=== PATIENT | male | born 1970 | race African-American/Black ===

== ENCOUNTER 2017-05-29 10:29 | Emergency (ER) | payer OTHER ==
[~2017-05-29] VITALS: Ht 188 cm; Wt 92.1 kg
[2017-05-29 10:41] VITALS: TEMP 36.9; Ht 188 cm; Wt 92.1 kg
[2017-05-29] MEDS ORDERED: HYDR25TA4 PO (10:41)
[2017-05-29] MEDS ORDERED: VNTHFA/IN INH (10:41)
[2017-05-29] MEDS ORDERED: AMLO-114 PO (10:41)
[2017-05-29] MEDS ORDERED: CICL160A INH (10:41)
[2017-05-29 11:21] LABS: BASO % 0.2 %; BASO ABS # 0.01 K/uL (0-0.2); COMPLETE YES; EOS % 1.5 %; HEMATOCRIT 43.3 % (42-52); IG% 0.2 %; LYMPH % 27.9 %; LYMPH ABS # 1.34 K/uL (1.2-3.4); MEAN CELL VOLUME 83.4 fL (80-100); MEAN CORPUSCULAR HEMOGLOBIN 27.6 pg (25-34); MEAN PLATELET VOLUME 9.6 fL (7.4-10.4); MONO % 8.9 %; NEUT % 61.3 %; PLATELET COUNT 224 K/uL (130-400); RED BLOOD COUNT 5.19 M/uL (4.7-6.1); WHITE BLOOD COUNT 4.81 K/uL (4.8-10.8)
[2017-05-29 11:38] LABS: BUN/CREATININE RATIO 10.6 (10-20); CREATININE 1.2 mg/dl (0.60-1.40); POTASSIUM 3.4 mmol/L (3.5-5.1)
[2017-05-29 11:39] LABS: CALCIUM 9.3 mg/dl (8.5-10.1)
--- NOTE | 2017-05-29 11:49 | DIAGNOSTIC IMAGING REPORT ---
R HAND MIN 3 VIEWS ROUTINE, L HAND MIN 3 VIEWS ROUTINE CLINICAL HISTORY: Bilateral hand pain. Fall. COMPARISON STUDY: None. FINDINGS: Osteoarthritis of the bilateral DIP joints most mass within the right fifth DIP joint. No acute fracture or dislocation. Cluster of punctate radiopaque foreign bodies at the distal right thumb and distal right middle finger. IMPRESSION: 1. No acute fracture or dislocation within the bilateral hands. 2. Cluster of punctate radiopaque foreign bodies at the distal right thumb and distal right middle finger. This could be on the skin surface. Electronically signed by: Jose Alfredo Artis M.D. 05/29/2017 11:48 AM Dictated Date/Time: 05/29/2017 11:44 AM
--- NOTE | 2017-05-29 11:52 | DIAGNOSTIC IMAGING REPORT ---
HEAD CT NONCONTRAST CT DOSE: HISTORY: trauma TECHNIQUE: Multiaxial CT images of the head were performed without the use of intravenous contrast. Automated exposure control was utilized for this study. A dose lowering technique was utilized adhering to the principles of ALARA. Comparison: None. Findings: The paranasal sinuses and mastoid air cells are clear. The calvarium and skull base are intact. The ventricles and sulci are within normal limits. There is no mass, hematoma, midline shift, or acute infarct. Impression: No acute intracranial abnormality. Electronically signed by: Jose Alfredo Artis M.D. 05/29/2017 11:51 AM Dictated Date/Time: 05/29/2017 11:48 AM
--- NOTE | 2017-05-29 12:04 | DIAGNOSTIC IMAGING REPORT ---
CERVICAL, THORACIC, AND LUMBAR SPINE CT CT DOSE: 2699.78 mGy.cm HISTORY: fall hit head TECHNIQUE: Multiaxial CT images of the cervical spine, thoracic, lumbar were performed and reformatted in the sagittal and coronal plane without the use of contrast. A dose lowering technique was utilized adhering to the principles of ALARA. COMPARISON: None. FINDINGS: No fractures. No subluxation. Prevertebral soft tissues and the C1-C2 interval are intact. No pneumothorax. Mild degenerative disc disease at C4-C5 and C5-C6 with small endplate osteophytes. A 3 mm nodule within the right upper lobe on image 146 of 536 of the thoracic spine series. IMPRESSION: No fractures within the cervical , thoracic, or lumbar spine. A 3 mm right upper lobe pulmonary nodule.. Electronically signed by: Jose Alfredo Artis M.D. 05/29/2017 12:02 PM Dictated Date/Time: 05/29/2017 11:51 AM
[2017-05-29] MEDS ORDERED: XYLOCAINE 1%/SOD BICARB 20 ML VIAL INFIL ONE (12:09)
[2017-05-29] MEDS ORDERED: DIPHTHERIA/TETANUS/PERTUSSIS 0.5 ML SYR/VIAL IM. ONE (12:45)
[2017-05-29] MEDS ORDERED: LIDOCAINE/EPINEPHRINE 1% 20 ML VIAL INFIL ONE (12:45)
[2017-05-29 13:09] LABS: URINE APPEARANCE CLEAR (CLEAR); URINE BILIRUBIN NEG (NEG); URINE COLOR YELLOW; URINE NITRITE NEG (NEG); URINE PH 8.5 (4.5-7.5); UROBILINOGEN NEG (NEG); ZZUR CULT IF INDIC CLEAN CATCH NO
--- NOTE | 2017-05-29 13:16 | EMERGENCY ROOM VISIT NOTE ---
ED Visit Note 46-year-old male inmate who I was asked by Dr. Chavez, ED attending physician, to perform a laceration repair. Please see his dictation for further treatment and final disposition. PROCEDURE NOTE: Examination shows a 4.5 cm transverse laceration under the chin. No active bleeding noted. Patient provided verbal consent for laceration repair under local anesthesia. Using buffered 1% lidocaine without epinephrine, good local anesthesia was administered. The peripheral tissue was cleansed with iodine, then the wound was irrigated with approximately 100 mL of normal saline. Exploration of the wound does not show any additional foreign debris. The wound was then approximated using 5-0 nylon simple interrupted sutures 7. Bacitracin was applied. The patient tolerated the procedure well. ASSESSMENT: Chin laceration
[2017-05-29 13:19] LABS: MANUAL MICROSCOPIC REQUIRED? NO; REVIEW REQ? YES
--- NOTE | 2017-05-29 14:48 | DIAGNOSTIC IMAGING REPORT ---
CERVICAL SPINE MRI HISTORY: trauma w/ tingling of fingers b/l TECHNIQUE: Multiplanar multisequence MRI of the cervical spine was performed without the use of contrast. COMPARISON STUDY: Cervical spine CT 05/29/2017. FINDINGS: Alignment and curvature are intact. No fractures within the cervical spine. Mild disc space narrowing at C4-C5, C5-C6, and C6-C7. The visualized posterior fossa is unremarkable. Prevertebral soft tissues and the C1-C2 interval are intact. The cervical spinal cord demonstrates a normal signal intensity. The visualized posterior fossa is unremarkable. C2-C3: No significant central canal or neural foraminal narrowing. C3-C4: No significant central canal or neural foraminal narrowing. C4-C5: Small broad-based posterior disc bulge with a focal central disc protrusion which measures 4 mm. This results in mild anterior cord deformity most pronounced on the right. There is mild bilateral neural foraminal narrowing. C5-C6: Broad-based posterior disc bulge resulting in mild anterior cord deformity and moderate bilateral neural foraminal narrowing. C6-C7: Focal central/right paracentral disc protrusion which measures 4 mm. This results in moderate right-sided cord deformity. Moderate bilateral neural foraminal narrowing. C7-T1: No significant central canal or neural foraminal narrowing. IMPRESSION: 1. No fractures within the cervical spine. 2. Focal central disc protrusions at C4-C5 and C6-C7 resulting and associated cord deformity as described above. 3. Broad-based posterior disc bulge at C5-C6 resulting in mild anterior cord deformity. 4. Bilateral neural foraminal narrowing from C4 through C7 as described above. Electronically signed by: Jose Alfredo Artis M.D. 05/29/2017 2:47 PM Dictated Date/Time: 05/29/2017 2:43 PM
--- NOTE | 2017-05-29 15:06 | EMERGENCY ROOM VISIT NOTE ---
History Report prepared by Jessy: Jami Lan Under the Supervision of: Dr. Tyree Chavez D.O. First contact with patient: 10:40 Chief Complaint: FALL Stated Complaint: NECK/BACK PAIN History of Present Illness The patient is a 46 year old male who presents to the Emergency Room with complaints of a sudden fall that occurred prior to arrival. The patient reports that he was exercising on a hyperextension machine when the machine malfunctioned, causing him to fall backwards, injuring his face, neck and back. The patient states that the machine flipped over. He is unsure of his tetanus status. The patient report tingling in his bilateral hands. He states that he lost consciousness after the event. The patient reports neck pain, back pain, and right finger pain. He declines any pain medication at this time. Source of History: patient Onset: prior to arrival Position: other (global) Quality: other (fall) Timing: other (sudden) Associated Symptoms: + LOC, + neck pain, + back pain Review of Systems See HPI for pertinent positives & negatives. A total of 10 systems reviewed and were otherwise negative. Past Medical & Surgical No pertinent history stated. Family History No pertinent family history stated. Social History Marital Status: single Occupation Status: other (senior living) Current/Historical Medications Scheduled Amlodipine (Norvasc), 10 MG PO DAILY Ciclesonide (Alvesco), 1 PUFF INH BID Hydrochlorothiazide (Hctz), 1 TAB PO DAILY Scheduled PRN Albuterol Hfa (Ventolin Hfa), 2-4 PUFFS INH Q6H PRN for SOB/Wheezing Physical Exam Vital Signs Date Time Temp Pulse Resp B/P (MAP) Pulse Ox O2 Delivery O2 Flow Rate FiO2 05/29/17 12:52 62 18 139/87 100 Room Air 05/29/17 10:41 36.9 77 18 150/83 99 Room Air 05/29/17 10:36 80 Physical Exam GENERAL: alert, well appearing, well nourished, no distress, non-toxic, laying on long board with c-collar in place. HEAD: 4.5 cm linear laceration over chin, mild venous oozing EYE EXAM: normal conjunctiva, PERRL and EOM's grossly intact OROPHARYNX: no exudate, no erythema, lips, buccal mucosa, and tongue normal and mucous membranes are moist EARS: TMs clear b/l NECK: Mild midline, reproducible tenderness, tracking into upper thoracic spine , supple, no nuchal rigidity, no adenopathy. CHEST: stable to compression anteriorly and posteriorly LUNGS: clear to auscultation. Normal chest wall mechanics HEART: no murmurs, S1 normal and S2 normal ABDOMEN: abdomen soft, non-tender, normo-active bowel sounds, no masses, no rebound or guarding. PELVIS: stable to compression anteriorly and posteriorly BACK: Back is symmetrical on inspection and there is no deformity, minimal tenderness in the lower lumbar spine, no CVA tenderness. UPPER EXTREMITIES: Acute reproducible tenderness over digits 2-5 bilaterally, no obvious deformity, left hand with pain tracking into the 5th metacarpal and medial wrist. flexion and extension at shoulder, elbow wrist, and grasp and abduction in all digits. 5/5 strength in extremities. LOWER EXTREMITIES: full active and passive range of motion of all joints without tenderness to palpation NEURO EXAM: Normal sensorium, cranial nerves II-XII grossly intact, normal speech, no weakness of arms, no weakness of legs. GCS: 15. Medical Decision & Procedures ER Provider Diagnostic Interpretation: Radiology results as stated below per my review and the radiologist's interpretation: R HAND MIN 3 VIEWS ROUTINE, L HAND MIN 3 VIEWS ROUTINE CLINICAL HISTORY: Bilateral hand pain. Fall. COMPARISON STUDY: None. FINDINGS: Osteoarthritis of the bilateral DIP joints most mass within the right fifth DIP joint. No acute fracture or dislocation. Cluster of punctate radiopaque foreign bodies at the distal right thumb and distal right middle finger. IMPRESSION: 1. No acute fracture or dislocation within the bilateral hands. 2. Cluster of punctate radiopaque foreign bodies at the distal right thumb and distal right middle finger. This could be on the skin surface. Electronically signed by: oJse Alfredo Artis M.D. 05/29/2017 11:48 AM Dictated Date/Time: 05/29/2017 11:44 AM R HAND MIN 3 VIEWS ROUTINE, L HAND MIN 3 VIEWS ROUTINE CLINICAL HISTORY: Bilateral hand pain. Fall. COMPARISON STUDY: None. FINDINGS: Osteoarthritis of the bilateral DIP joints most mass within the right fifth DIP joint. No acute fracture or dislocation. Cluster of punctate radiopaque foreign bodies at the distal right thumb and distal right middle finger. IMPRESSION: 1. No acute fracture or dislocation within the bilateral hands. 2. Cluster of punctate radiopaque foreign bodies at the distal right thumb and distal right middle finger. This could be on the skin surface. Electronically signed by: Jose Alfredo Artis M.D. 05/29/2017 11:48 AM Dictated Date/Time: 05/29/2017 11:44 AM CERVICAL, THORACIC, AND LUMBAR SPINE CT CT DOSE: 2699.78 mGy.cm HISTORY: fall hit head TECHNIQUE: Multiaxial CT images of the cervical spine, thoracic, lumbar were performed and reformatted in the sagittal and coronal plane without the use of contrast. A dose lowering technique was utilized adhering to the principles of ALARA. COMPARISON: None. FINDINGS: No fractures. No subluxation. Prevertebral soft tissues and the C1-C2 interval are intact. No pneumothorax. Mild degenerative disc disease at C4-C5 and C5-C6 with small endplate osteophytes. A 3 mm nodule within the right upper lobe on image 146 of 536 of the thoracic spine series. IMPRESSION: No fractures within the cervical , thoracic, or lumbar spine. A 3 mm right upper lobe pulmonary nodule.. Electronically signed by: Jose Alfredo Artis M.D. 05/29/2017 12:02 PM Dictated Date/Time: 05/29/2017 11:[address] CT DOSE: HISTORY: trauma TECHNIQUE: Multiaxial CT images of the head were performed without the use of intravenous contrast. Automated exposure control was utilized for this study. A dose lowering technique was utilized adhering to the principles of ALARA. Comparison: None. Findings: The paranasal sinuses and mastoid air cells are clear. The calvarium and skull base are intact. The ventricles and sulci are within normal limits. There is no mass, hematoma, midline shift, or acute infarct. Impression: No acute intracranial abnormality. Electronically signed by: Jose Alfredo Artis M.D. 05/29/2017 11:51 AM Dictated Date/Time: 05/29/2017 11:48 AM CERVICAL, THORACIC, AND LUMBAR SPINE CT CT DOSE: 2699.78 mGy.cm HISTORY: fall hit head TECHNIQUE: Multiaxial CT images of the cervical spine, thoracic, lumbar were performed and reformatted in the sagittal and coronal plane without the use of contrast. A dose lowering technique was utilized adhering to the principles of ALARA. COMPARISON: None. FINDINGS: No fractures. No subluxation. Prevertebral soft tissues and the C1-C2 interval are intact. No pneumothorax. Mild degenerative disc disease at C4-C5 and C5-C6 with small endplate osteophytes. A 3 mm nodule within the right upper lobe on image 146 of 536 of the thoracic spine series. IMPRESSION: No fractures within the cervical , thoracic, or lumbar spine. A 3 mm right upper lobe pulmonary nodule.. Electronically signed by: Jose Alfredo Artis M.D. 05/29/2017 12:02 PM Dictated Date/Time: 05/29/2017 11:51 AM CERVICAL, THORACIC, AND LUMBAR SPINE CT CT DOSE: 2699.78 mGy.cm HISTORY: fall hit head TECHNIQUE: Multiaxial CT images of the cervical spine, thoracic, lumbar were performed and reformatted in the sagittal and coronal plane without the use of contrast. A dose lowering technique was utilized adhering to the principles of ALARA. COMPARISON: None. FINDINGS: No fractures. No subluxation. Prevertebral soft tissues and the C1-C2 interval are intact. No pneumothorax. Mild degenerative disc disease at C4-C5 and C5-C6 with small endplate osteophytes. A 3 mm nodule within the right upper lobe on image 146 of 536 of the thoracic spine series. IMPRESSION: No fractures within the cervical , thoracic, or lumbar spine. A 3 mm right upper lobe pulmonary nodule.. Electronically signed by: Jose Alfredo Artis M.D. 05/29/2017 12:02 PM Dictated Date/Time: 05/29/2017 11:51 AM Laboratory Results 05/29/17 11:10 Red Blood Count 5.19, Mean Corpuscular Volume 83.4, Mean Corpuscular Hemoglobin 27.6, Mean Corpuscular Hemoglobin Concent 33.0, Mean Platelet Volume 9.6, Neutrophils (%) (Auto) 61.3, Lymphocytes (%) (Auto) 27.9, Monocytes (%) (Auto) 8.9, Eosinophils (%) (Auto) 1.5, Basophils (%) (Auto) 0.2, Neutrophils # (Auto) 2.95, Lymphocytes # (Auto) 1.34, Monocytes # (Auto) 0.43, Eosinophils # (Auto) 0.07, Basophils # (Auto) 0.01 05/29/17 11:10 Test 05/29/17 11:10 05/29/17 12:50 White Blood Count 4.81 K/uL (4.8-10.8) Red Blood Count 5.19 M/uL (4.7-6.1) Hemoglobin 14.3 g/dL (14.0-18.0) Hematocrit 43.3 % (42-52) Mean Corpuscular Volume 83.4 fL (80-100) Mean Corpuscular Hemoglobin 27.6 pg (25-34) Mean Corpuscular Hemoglobin Concent 33.0 g/dl (32-36) Platelet Count 224 K/uL (130-400) Mean Platelet Volume 9.6 fL (7.4-10.4) Neutrophils (%) (Auto) 61.3 % Lymphocytes (%) (Auto) 27.9 % Monocytes (%) (Auto) 8.9 % Eosinophils (%) (Auto) 1.5 % Basophils (%) (Auto) 0.2 % Neutrophils # (Auto) 2.95 K/uL (1.4-6.5) Lymphocytes # (Auto) 1.34 K/uL (1.2-3.4) Monocytes # (Auto) 0.43 K/uL (0.11-0.59) Eosinophils # (Auto) 0.07 K/uL (0-0.5) Basophils # (Auto) 0.01 K/uL (0-0.2) RDW Standard Deviation 39.2 fL (36.4-46.3) RDW Coefficient of Variation 13.0 % (11.5-14.5) Immature Granulocyte % (Auto) 0.2 % Immature Granulocyte # (Auto) 0.01 K/uL (0.00-0.02) Anion Gap 7.0 mmol/L (3-11) Est Creatinine Clear Calc Drug Dose 89.5 ml/min Estimated GFR () 83.5 Estimated GFR (Non- 72.1 BUN/Creatinine Ratio 10.6 (10-20) Calcium Level 9.3 mg/dl (8.5-10.1) Total Bilirubin 0.5 mg/dl (0.2-1) Direct Bilirubin 0.1 mg/dl (0-0.2) Aspartate Amino Transf (AST/SGOT) 24 U/L (15-37) Alanine Aminotransferase (ALT/SGPT) 25 U/L (12-78) Alkaline Phosphatase 35 U/L (45-117) Total Protein 7.1 gm/dl (6.4-8.2) Albumin 3.6 gm/dl (3.4-5.0) Lipase 92 U/L (73-393) Urine Color YELLOW Urine Appearance CLEAR (CLEAR) Urine pH 8.5 (4.5-7.5) Urine Specific [place] 1.020 (1.000-1.030) Urine Protein NEG (NEG) Urine Glucose (UA) NEG (NEG) Urine Ketones NEG (NEG) Urine Occult Blood NEG (NEG) Urine Nitrite NEG (NEG) Urine Bilirubin NEG (NEG) Urine Urobilinogen NEG (NEG) Urine Leukocyte Esterase NEG (NEG) Urine WBC (Auto) 1-5 /hpf (0-5) Urine RBC (Auto) 0-4 /hpf (0-4) Urine Hyaline Casts (Auto) 0 /lpf (0-5) Urine Epithelial Cells (Auto) 5-10 /lpf (0-5) Urine Bacteria (Auto) NEG (NEG) Urine Renal Epithelial Cells /lpf (0-5) Laboratory results per my review. Medications Administered Medications (Trade) Dose Ordered Sig/Symone Route Start Time Stop Time Status Last Admin Dose Admin Diphtheria/ Pertussis/Tetanus Vacc (Adacel Inj) 0.5 ml ONCE ONCE IM. 05/29/17 12:45 05/29/17 12:46 DC 05/29/17 12:57 0.5 ML Lidocaine/ Epinephrine (Xylocaine/Epine 1% Inj) 20 ml ONE ONCE INFIL 05/29/17 12:45 05/29/17 12:46 DC 05/29/17 12:45 20 ML ED Course ED COURSE: Vital signs were reviewed and showed hypertensive situational The patients medical record was reviewed The above diagnostic studies were performed and reviewed. ED treatments and interventions as stated above. 1047: The patient was evaluated in room B10. A complete history and physical examination was performed. 1209: Ordered Lidocaine HCl 20 ml INFIL. 1300: The laceration was repaired by Jake Byers PA-C. See his note for further detail. 1238: I reevaluated the patient and he is resting comfortably. 1245: Ordered Adacel Inj 0.5 ml IM. 1313: I discussed the patients case with Dr. Loza, Internal medicine. He is okay with the patient returning to their facility. 1318: I updated the patient at this time. 1440: Upon reevaluation, the patient is resting comfortably.I discussed my findings with the patient and he understands and agrees with the treatment plan. Based on the patients age, coexisting illnesses, exam and lab findings the decision to treat as an outpatient was made. The patient remained stable while under my care. The patient appeared well at the time of discharge. Medical Decision Differential diagnoses include major intracranial, cervical, spinal, thoracic, abdominal, pelvic and neurologic injury. Fracture, contusion, sprain, strain, laceration, abrasions included as well. Patient is a 46-year-old male who presents to ER following medications are to his head while he was working out. Patient completely neurologically intact with the exception of paresthesias in digits 2 through 5 on bilateral hands. He did have bilateral paracervical region tenderness. Patient also had lower lumbar tenderness. CT head, cervical spine, thoracic and lumbar spine was performed was unremarkable. With the paresthesias in his bilateral digits MRI was ordered and showed mild cervical disc protrusions. Discussed with Dr. Ruggiero at 2:56 PM. He recommends [place] [facility] and have him follow-up in the office early this week. Patient was updated. Also updated the patient in regards to the ulnar nodule found. Recommended follow-up senior living as discussed in his discharge instructions with in 1-2 months. Sutures to be removed in 7 days. Discussed with Pt concerning signs and symptoms to watch out for. Pt was instructed to follow up with their PCP and discussed with the patient their option to return to the ED at anytime for persistent or worsening symptoms. The appropriate anticipatory guidance and out-patient management, including indications for return to the emergency department, were explained at length to the patient and understood. Medication Reconcilliation Current Medication List: was personally reviewed by me Blood Pressure Screening Patient's blood pressure: Elevated blood pressure Blood pressure disposition: Elevated BP felt to be situational, Did not require urgent referral Consults Time Called: 1310 Consulting Physician: Dr. Loza, Internal Medicine Returned Call: 1313 I discussed the patients case with Dr. Loza, Internal medicine. He is okay with the patient returning to their facility. Additional Consults: Time Called: 252pm Consulted Physician: Bahman Additional Comments: Follow-up in office early next week and [place] [facility] collar. Impression Primary Impression: Concussion Additional Impressions: Laceration Paresthesias Pulmonary nodule Scribe Attestation The scribe's documentation has been prepared under my direction and personally reviewed by me in its entirety. I confirm that the note above accurately reflects all work, treatment, procedures, and medical decision making performed by me. Departure Information Dispostion Home / Self-Care Referrals Estela COTE (PCP) Forms HOME CARE DOCUMENTATION FORM, IMPORTANT VISIT INFORMATION Patient Instructions ED Concussion, ED Laceration All, My [facility] Additional Instructions Please follow up with your primary care doctor with in the next 24 hours. Any worsening of your symptoms, please return to the ED immediately. This includes any fevers greater than 100.4, worsening pain, any weakness or numbness in your arms or legs, unable to ambulate, confusion, or any other concerning signs or symptoms from your standpoint. Sutures to be removed in 7 days. If he continued to have paresthesias of the next 3-5 days he'll need to be reevaluated by at the present. Problem Qualifiers Primary Impression: Concussion Encounter type: initial encounter Loss of consciousness presence/duration: with LOC of 30 min or less Qualified Codes: S06.0X1A - Concussion with loss of consciousness of 30 minutes or less, initial encounter
[2017-05-29 15:09] VITALS: BP 148/89; PULSE 76; O2SAT 99
== END 2017-05-29 15:09 | disposition home or self-care (01) ==
LOC: C.EDB 10:33
DX: S06.0X1A Concussion with loss of consciousness of 30 minutes or less, initial encounter (principal); S01.81XA Laceration without foreign body of other part of head, initial encounter; W19.XXXA Unspecified fall, initial encounter; R20.2 Paresthesia of skin; R91.1 Solitary pulmonary nodule; Z23 Encounter for immunization